=== PATIENT | male | born 1955 | race Caucasian/White ===

== ENCOUNTER 2017-09-11 07:39 | Day surgery (SDC) | payer BC ==
[~2017-09-11 07:39] MED LIST: Sodium Chloride 0.9% 10 ML Syringe FLUSH PRN
[2017-09-11] MEDS ORDERED: Lactated Ringers 1,000 ML IV ONE (10:00)
[2017-09-11] MEDS ORDERED: Lactated Ringers 1,000 ML IV SCH (10:00)
[2017-09-11] MEDS ORDERED: Glycopyrrolate 0.2 MG/ML 2 ML SDV IV ONE (10:00)
[2017-09-11] MEDS ORDERED: Ondansetron 4 MG/2 ML SDV IVPUSH ONE (10:00)
[2017-09-11] MEDS ORDERED: fentaNYL 100 MCG/2 ML SDV IV ONE (10:00)
[2017-09-11] MEDS ORDERED: Rocuronium 100 MG/10 ML MDV IV ONE (10:00)
[2017-09-11] MEDS ORDERED: Midazolam 1 MG/ML 2 ML SDV IV ONE (10:00)
[2017-09-11] MEDS ORDERED: Propofol 200 MG/20 ML SDV IV ONE (10:00)
[2017-09-11] MEDS ORDERED: Ketorolac 30 MG/ML SDV IVPUSH ONE (10:00)
[2017-09-11] MEDS ORDERED: HYDROmorphone 2 MG/ML SDV IV ONE (10:00)
[2017-09-11] MEDS ORDERED: Bupivacaine 0.25% 30 ML SDV INJECT ONE (10:30)
[2017-09-11] MEDS ORDERED: ceFAZolin 1 GM Vial ONE (10:36)
--- NOTE | 2017-09-11 12:21 | PCM.OPNOTE ---
- General Post-Op/Procedure Note Date of Surgery/Procedure: 09/11/17 Operative Procedure(s): Lap Ventral Hernia Repair with Mesh / Adhesiolysis Findings: # cm Ventral Hernia with loop of small bowel incarcerated Small Umb hernia Pre Op Diagnosis: Ventral Hernia Post-Op Diagnosis: Same Anesthesia Technique: General ET Tube Primary Surgeon: Nigel Johnson Executive Sales Manager: Heath Porter in mLs: 10 Complications: None Condition: Good
--- NOTE | 2017-09-11 14:35 | OR ---
DATE OF OPERATION: 09/11/2017 SURGEON: Nigel Johnson MD PREOPERATIVE DIAGNOSIS: Ventral hernia. POSTOPERATIVE DIAGNOSES: 1. Chronically-incarcerated ventral hernia with small intestine. 2. Small umbilical hernia. PROCEDURES: 1. Laparoscopic ventral hernia repair with mesh. 2. Adhesiolysis. ANESTHESIA: General. COLOR PASTE MIXER: Dr. Heath Porter. Dr. Porter was necessary for aid in retraction and assistance during the procedure. DESCRIPTION OF PROCEDURE: The patient was brought to the operating room, where general endotracheal anesthesia was administered. His abdomen was clipped, prepped with ChloraPrep, and draped sterilely. A 1.5-cm incision was made in the left upper quadrant, and the Visiport used to enter the peritoneal cavity without difficulty. The pneumoperitoneum was obtained. 5 mm ports were placed in the right upper and both lower quadrants. General inspection revealed a loop of small bowel densely adhesed into the ventral hernia above the umbilicus. There was also a small umbilical hernia present. He also had an adhesion on the right lateral wall at a previous port site. Slow dissection was used to carefully transect the fibrous bands and connective tissue around the loop of small bowel that was incarcerated. All the bowel appeared viable. Approximately 30 minutes was spent taking down this loop of bowel. After it was removed, the hernia was measured at approximately 3 cm in diameter and was approximately 1 inch above the umbilicus. Therefore, the entire area was decided to be repaired with Com[employer]ix mesh. A 6 x 8-inch piece of Composix mesh was then soaked in antibiotic solution and a suture placed at each quadrant and rolled and placed through the left upper quadrant trocar. Each quadrant of the mesh suture was grasped by making a small hole and grasping it with the port closure device instrument. This allowed good coverage of the defect. Each quadrant of the mesh was then secured. After the outer row was complete, an inner row was then also completed. This provided a good tension-free repair with at least 1.5 inches of coverage beyond the edges of the hernias. The port closure device was used to close the left upper quadrant port using #0 Vicryl. Pneumoperitoneum was removed, and the remaining ports were removed. The skin was closed with 4-0 Vicryl subcuticular sutures. Benzoin and Steri-Strips were placed and Band-Aids applied. The patient tolerated the procedure well. ESTIMATED BLOOD LOSS: 10 mL. DISPOSITION: He returned to Postanesthesia in a stable condition. /[id number] GERARDO/NICOLE
--- NOTE | 2017-09-14 09:07 | PCM.HPR ---
H & P Addendum review - H & P Addendum Review Date of Original H & P: 08/21/17 Date Reviewed: 09/11/17 Time Reviewed: 08:00 Patient was Examined: No Changes
== END 2017-09-11 16:05 | disposition home or self-care (01) ==
LOC: FB.SDS 07:39
PROVIDERS: ATTEND Surgery
DX: K43.6 Other and unspecified ventral hernia with obstruction, without gangrene (principal); K42.9 Umbilical hernia without obstruction or gangrene; I10 Essential (primary) hypertension; E78.5 Hyperlipidemia, unspecified; E11.9 Type 2 diabetes mellitus without complications; E66.9 Obesity, unspecified; Z68.41 Body mass index [BMI] 40.0-44.9, adult; G47.33 Obstructive sleep apnea (adult) (pediatric); Z99.89 Dependence on other enabling machines and devices; Z79.82 Long term (current) use of aspirin; Z79.84 Long term (current) use of oral hypoglycemic drugs; Z79.899 Other long term (current) drug therapy; Z88.5 Allergy status to narcotic agent
CPT/HCPCS: 82962; C1781; J0690; J1170; J1885; J2250; J2405; J2704; J3010; J3490; J7030; J7120